=== PATIENT | female | born 1980 | race Caucasian/White ===

== ENCOUNTER 2017-05-15 02:39 | Emergency (ER) | payer MEDICAID ==
[~2017-05-15] VITALS: Ht 165.1 cm; Wt 65.5 kg
[~2017-05-15 02:39] MED LIST: PREN1TAB49 PO
[2017-05-15 02:46] VITALS: Ht 165.1 cm; Wt 65.5 kg
[2017-05-15 03:15] LABS: URINE BLOOD (Dip) POC Negative (NEGATIVE)
[2017-05-15] MEDS ORDERED: CYCLOBENZAPRINE 10 MG TAB PO ONE (03:30)
[2017-05-15] MEDS ORDERED: HYDROCODONE/APAP (10/325) TAB PO ONE (03:30)
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
--- NOTE | 2017-05-15 03:52 | RADRPT ---
PROCEDURE: CT Lumbar Spine without contrast. CLINICAL INDICATION: Back pain. TECHNIQUE: CT scan of the lumbar spine was [facility] Contiguous axial images were obtained without intravenous contrast. Coronal and sagittal refor matted images were also obtained. Images were reviewed on the PACS workstation. One or more of the following dose reduction techniques were used: - Automated exposure control. - Adjustment of the mA and/or kV according to patient size. - Use of iterative reconstruction technique. Exam CTD/vol = 11.62 mGy. Total exam DLP = 273.38 mGy-cm. COMPARISON: None. FINDINGS: Lumbar vertebral body heights and alignment are within normal limits. There is no acute fracture or subluxation. At T12-L1, the disk height is within normal limits. There is no central canal or neural foraminal s tenosis. At L1-L2, the disk height is within normal limits. There is no central canal or neural foraminal st enosis. At L2-L3, the disk height is within normal limits. There is no central canal or neural foraminal st enosis. At L3-L4, the disk height is within normal limits. There is no central canal or neural foraminal st enosis. At L4-L5, the disk height is within normal limits. There is no central canal or neural foraminal st enosis. At L5-S1, the disk height is within normal limits. There is a mild 3 mm AP diameter left posterolate ral focal disk protrusion . There is no central canal or neural foraminal stenosis. There is no paraspinal mass or collection. IMPRESSION: No acute fracture or subluxation. Mild left posterolateral focal disk protrusion at L5-S1. .Kenyon Grissom MD, MD Date Time Electronically viewed and signed by .Kenyon Grissom MD, MD on 05/15/2017 03:51 .T/
[2017-05-15] MEDS ORDERED: IBUP-1542 PO (04:03)
[2017-05-15] MEDS ORDERED: HYDR-906 PO (04:03)
[2017-05-15] MEDS ORDERED: CYCL-319 PO (04:03)
== END 2017-05-15 04:15 | disposition home or self-care (01) ==
LOC: FTE 02:39
DX: M54.42 Lumbago with sciatica, left side (principal); M51.37 Other intervertebral disc degeneration, lumbosacral region
CPT/HCPCS: 72131; 81003; Z7610

== ENCOUNTER 2017-07-31 20:37 | Emergency (ER) | payer MEDICAID ==
[~2017-07-31] VITALS: Ht 162.6 cm; Wt 66.0 kg
[~2017-07-31 20:37] MED LIST changes: +CYCL-319 PO; +HYDR-906 PO; +IBUP-1542 PO
[2017-07-31 20:42] VITALS: Ht 162.6 cm; Wt 66.0 kg
[2017-07-31] MEDS ORDERED: ACETAMINOPHEN 325 MG TAB PO ONE (21:30)
[2017-07-31] MEDS ORDERED: METOCLOPRAMIDE 10 MG TAB PO ONE (21:30)
[2017-07-31 21:41] LABS: BASOPHILS % 0.4 % (0.0-2.0); EOSINOPHILS # 0.1 10^3/ul (0.0-0.5); EOSINOPHILS % 0.9 % (0.0-7.0); HEMOGLOBIN 14.7 g/dl (12.0-16.0); LYMPHOCYTES # 1.9 10^3/ul (0.8-2.9); LYMPHOCYTES % 20.3 % (15.0-51.0); MEAN CORPUSCULAR HEMOGLOBIN 30.6 pg (29.0-33.0); MEAN CORPUSCULAR VOLUME 87.5 fl (82.0-101.0); MEAN PLATELET VOLUME 10.2 fl (7.4-10.4); MONOCYTE # 0.7 10^3/ul (0.3-0.9); MONOCYTES % 7.2 % (0.0-11.0); NEUTROPHIL # 6.7 10^3/ul (1.6-7.5); NEUTROPHILS % 70.8 % (39.0-77.0); PLATELET COUNT 260 10^3/UL (140-415); RED CELL DISTRIBUTION WIDTH 11.9 % (11.5-14.5); WHITE BLOOD COUNT 9.5 10^3/ul (4.8-10.8)
--- NOTE | 2017-07-31 21:43 | RADRPT ---
PROCEDURE: OB Ultrasound. CLINICAL INDICATION: Positive test. Vaginal bleeding. TECHNIQUE: Ultrasound of the pelvis was performed with transabdominal sonography in the axial and sagittal planes. COMPARISON: No prior study is available for comparison. FINDINGS: There is a single intrauterine gestational sac. pole and yolk sac are present. There is heart motion. heart rate is 128 beats per minute. [place]-rump length is 0.76 cm. Mean sac diameter is 1.88 cm. Menstrual age by ultrasound dates is 6 weeks 5 days. This indicates an expected date of delivery of 03/21/2018. The right ovary appears normal measuring 3.2 x 2.3 x 2.5 cm. The left ovary is not visualized. Color Doppler and pulsed Doppler sonography demonstrate normal flow to the right ovary. There is no other pelvic mass or free fluid. IMPRESSION: 1. Single live intrauterine gestation of 6 weeks 5 days menstrual age by ultrasound dates. 2. Expected date of delivery is 03/21/2018. 3. Left ovary not visualized. RPTAT: QQ .Jaden Ewing MD, Date Time Electronically viewed and signed by .Jaden Ewing MD, on 07/31/2017 21:42 .R/
[2017-07-31 21:44] LABS: ADD UMIC YES; UR ASCORBIC ACID NEGATIVE (NEGATIVE); UR BACTERIA FEW /HPF (NONE SEEN); UR BILIRUBIN (Dip) NEGATIVE (NEGATIVE); UR BLOOD (Dip) 1+ mg/dL (NEGATIVE); UR CLARITY CLEAR (CLEAR); UR COLOR YELLOW (YELLOW); UR GLUCOSE (Dip) NEGATIVE (NEGATIVE); UR KETONES (Dip) NEGATIVE (NEGATIVE); UR LEUKOCYTE ESTERASE (Dip) NEGATIVE Leu/ul (NEGATIVE); UR NITRITE (Dip) NEGATIVE (NEGATIVE); UR RBC 0 /HPF (0-5); UR SPECIFIC GRAVITY (Dip) 1.016 (1.003-1.030); UR TOTAL PROTEIN (Dip) NEGATIVE (NEGATIVE); UR UROBILINOGEN (Dip) NEGATIVE (NEGATIVE)
[2017-07-31] MEDS ORDERED: ACET500C5 PO (23:14)
[2017-07-31] MEDS ORDERED: METO10TA92 PO (23:14)
--- NOTE | 2017-07-31 23:26 | ERD ---
ER Documentation Chief Complaint Date/Time DATE: 07/31/17 TIME: 23:21 Chief Complaint 7 weeks vaginal bleeding HPI 36-year-old female patient with no significant past medical history is a presents to the ED complaining of vaginal spotting and vaginal bleeding that started intermittently since 1 week ago. Reports that she had a positive test 2 weeks ago. States that her last menstruation was on June. States that she is nauseous but denies any vomiting. She has some slight abdominal pain. Denies any dysuria, urgency, frequency, hematuria, chest pain, shortness of breath, wheezing. ROS All systems reviewed and are negative except as per history of present illness. Medications Home Meds Active Scripts Metoclopramide* (Reglan*) 10 Mg Tablet, 10 MG PO Q6 Y for NAUSEA AND/OR VOMITING , #10 TAB Prov:SHYLA RODRIGUEZ PA-C 07/31/17 Acetaminophen* (Tylophen*) 500 Mg Capsule, 1 CAP PO Q6H Y for PAIN AND OR ELEVATED TEMP, #20 CAP Prov:SHYLA RODRIGUEZ PA-C 07/31/17 Hydrocodone/Acetaminophen ([place] 5-325 Tablet) 1 Each Tablet, 1 TAB PO Q6H Y for PAIN, #20 TAB Prov:LIVIA MACKENZIE NP 05/15/17 Cyclobenzaprine Hcl* (Cyclobenzaprine Hcl*) 10 Mg Tablet, 10 MG PO TID, #15 TAB Prov:LIVIA MACKENZIE NP 05/15/17 Ibuprofen* (Motrin*) 600 Mg Tab, 600 MG PO Q6H Y for PAIN AND OR ELEVATED TEMP, #30 TAB Prov:LIVIA MACKENZIE NP 05/15/17 Reported Medications Vits W-Ca,Fe,Fa(<1MG) () 1 Tab Tablet, 1 TAB PO 04/06/12 Allergies Allergies: Coded Allergies: No Known Allergies (Verified Allergy, 04/06/12) PMhx/Soc Medical and Surgical Hx: pt denies Medical Hx, pt denies Surgical Hx Hx Alcohol Use: No Hx Substance Use: No Hx Tobacco Use: No Smoking Status: Never smoker Physical Exam Vitals Vital Signs Date Time Temp Pulse Resp B/P Pulse Ox O2 Delivery O2 Flow Rate FiO2 07/31/17 20:42 98.3 79 20 112/75 99 Physical Exam Const: [id number], well-nourished. In no acute distress. Head: Atraumatic, normocephalic Eyes: Normal Conjunctiva without injection. No purulent discharge. ENT: Normal external ear, nose. Moist oropharynx without tonsillar exudates. Non -erythematous pharynx. Uvula midline. No drooling. No trismus. Neck: No cervical midline tenderness. Full range of motion. No meningismus. No cervical lymphadenopathy. No JVD. Resp: Clear to auscultation bilaterally. No wheezing, rhonchi, rales, or crackles. No accessory muscle use. No retractions. Cardio: Regular rate and rhythm. No murmurs, rubs or gallops. Abd: Soft, nontender, non distended. Normal bowel sounds. No palpable masses. No rebound tenderness. No guarding. Negative McBurney's point. Negative psoas sign. Negative obturator sign. Skin: No petechiae or rashes Back: No midline tenderness. No CVA tenderness. Ext: No cyanosis, or edema. Neur: Awake and alert. Normal gait. Normal coordination. Psych: Normal Mood and Affect Result Diagram: 07/31/172114 Results 24 hrs Laboratory Tests Test 07/31/17 21:15 White Blood Count 9.510^3/ul Red Blood Count 4.8010^6/ul Hemoglobin 14.7g/dl Hematocrit 42.0% Mean Corpuscular Volume 87.5fl Mean Corpuscular Hemoglobin 30.6pg Mean Corpuscular Hemoglobin Concent 35.0g/dl Red Cell Distribution Width 11.9% Platelet Count 23420^3/UL Mean Platelet Volume 10.2fl Neutrophils % 70.8% Lymphocytes % 20.3% Monocytes % 7.2% Eosinophils % 0.9% Basophils % 0.4% Nucleated Red Blood Cells % 0.0/100WBC Neutrophils # 6.710^3/ul Lymphocytes # 1.910^3/ul Monocytes # 0.710^3/ul Eosinophils # 0.110^3/ul Basophils # 0.010^3/ul Nucleated Red Blood Cells # 0.010^3/ul Urine Color YELLOW Urine Clarity CLEAR Urine pH 7.0 Urine Specific [place] 1.016 Urine Ketones NEGATIVEmg/dL Urine Nitrite NEGATIVEmg/dL Urine Bilirubin NEGATIVEmg/dL Urine Urobilinogen NEGATIVEmg/dL Urine Leukocyte Esterase NEGATIVELeu/ul Urine Microscopic RBC 0/HPF Urine Microscopic WBC 1/HPF Urine Bacteria FEW/HPF Urine Hemoglobin 1+mg/dL Urine Glucose NEGATIVEmg/dL Urine Total Protein NEGATIVEmg/dl Beta HCG, Quantitative 96130.0mIU/ml Current Medications Medications (Trade) Dose Ordered Sig/Gentry Route PRN Reason Start Time Stop Time Status Last Admin Dose Admin Metoclopramide HCl (Reglan) 10 mg ONCE ONCE PO 07/31/17 21:30 07/31/17 21:31 DC 07/31/17 21:18 Acetaminophen (Tylenol Tab) 650 mg ONCE ONCE PO 07/31/17 21:30 07/31/17 21:31 DC 07/31/17 21:17 Procedures/MDM This is a 36-year-old female patient who is a presents to the ED complaining of abdominal pain, vaginal bleeding and nausea. Patient is afebrile nontoxic appearing. Patient has normal vital signs. An ultrasound, beta-hCG, CBC, type and RH, UA was ordered to evaluate patient. CBC: No evidence of severe infection or anemia Urine: No elevation in nitrites, leukocyte esterase, 1+ hematuria. Rh: A positive No indication for Rhogam at this time. beta Hc PROCEDURE: OB Ultrasound. CLINICAL INDICATION: Positive test. Vaginal bleeding. TECHNIQUE: Ultrasound of the pelvis was performed with transabdominal sonography in the axial and sagittal planes. COMPARISON: No prior study is available for comparison. FINDINGS: There is a single intrauterine gestational sac. pole and yolk sac are present. There is heart motion. heart rate is 128 beats per minute. [place]-rump length is 0.76 cm. Mean sac diameter is 1.88 cm. Menstrual age by ultrasound dates is 6 weeks 5 days. This indicates an expected date of delivery of 03/21/2018. The right ovary appears normal measuring 3.2 x 2.3 x 2.5 cm. The left ovary is not visualized. Color Doppler and pulsed Doppler sonography demonstrate normal flow to the right ovary. There is no other pelvic mass or free fluid. IMPRESSION: 1. Single live intrauterine gestation of 6 weeks 5 days menstrual age by ultrasound dates. 2. Expected date of delivery is 03/21/2018. 3. Left ovary not visualized. Patient's bleeding symptoms have stabilized while in the department. Patient has a single IUP of 6 weeks 5 days menstrual age by ultrasound dates. Low suspicion for symptomatic anemia, ectopic , sepsis, PID, appendicitis, ovarian torsion, tubo-ovarian abscess, surgical abdomen, or other emergent conditions. Patient was educated that there is a risk for threatened . Charge medications: Reglan, Tylenol Patient to follow up with [facility] in 2 days for further evaluation and treatment. Patient is to return sooner to the ED for any worsening symptoms. Patient's questions were answered. Patient understood and agreed with discharge plan. Departure Diagnosis: Primary Impression: Vaginal bleeding in patient at less than 20 weeks ges... Condition: Stable Patient Instructions: : Your First Trimester Changes, Possible Miscarriage (Threatened ) Referrals: [facility] YOU HAVE RECEIVED A MEDICAL SCREENING EXAM AND THE RESULTS INDICATE THAT YOU DO NOT HAVE A CONDITION THAT REQUIRES URGENT TREATMENT IN THE EMERGENCY DEPARTMENT. FURTHER EVALUATION AND TREATMENT OF YOUR CONDITION CAN WAIT UNTIL YOU ARE SEEN IN YOUR DOCTORS OFFICE WITHIN THE NEXT 1-2 DAYS. IT IS YOUR RESPONSIBILITY TO MAKE AN APPOINTMENT FOR FOLOW-UP CARE. IF YOU HAVE A PRIMARY DOCTOR --you should call your primary doctor and schedule an appointment IF YOU DO NOT HAVE A PRIMARY DOCTOR YOU CAN CALL OUR PHYSICIAN REFERRAL HOTLINE AT IF YOU CAN NOT AFFORD TO SEE A PHYSICIAN YOU CAN CHOSE FROM THE FOLLOWING [facility] [address] [facility]. [facility] [address] [facility] [address] [facility]. [facility] [address] [facility]. [facility] [address] [facility]. [facility]. [address] [facility]. [facility] YOU HAVE RECEIVED A MEDICAL SCREENING EXAM AND THE RESULTS INDICATE THAT YOU DO NOT HAVE A CONDITION THAT REQUIRES URGENT TREATMENT IN THE EMERGENCY DEPARTMENT. FURTHER EVALUATION AND TREATMENT OF YOUR CONDITION CAN WAIT UNTIL YOU ARE SEEN IN YOUR DOCTORS OFFICE WITHIN THE NEXT 1-2 DAYS. IT IS YOUR RESPONSIBILITY TO MAKE AN APPOINTMENT FOR FOLOW-UP CARE. IF YOU HAVE A PRIMARY DOCTOR --you should call your primary doctor and schedule and appointment IF YOU DO NOT HAVE A PRIMARY DOCTOR YOU CAN CALL OUR PHYSICIAN REFERRAL HOTLINE AT . IF YOU CAN NOT AFFORD TO SEE A PHYSICIAN YOU CAN CHOSE FROM THE FOLLOWING [facility] INSTITUTIONS: [facility] [address] [place] [address] [facility] [address] [place], [place] [address] [place] [address] [address] [place] [address] [facility] URGENT CARE/SPECIALTIES Additional Instructions: Llame al doctor MAANA y nathan segun BETITO PARA DENTRO DE 2-3 MUSE para segun referencia a un obstetra. Dgale a la secretaria que nosotros le instruimos hacer esta betito.Avise o llame si scott condicin se empeora antes de la betito. Regresa aqui si peor o no mejor. SHYLA RODRIGUEZ PA-C Jul 31, 2017 23:26
== END 2017-07-31 23:31 | disposition home or self-care (01) ==
LOC: FTE 20:37
DX: O20.9 Hemorrhage in early pregnancy, unspecified (principal); Z3A.01 Less than 8 weeks gestation of pregnancy
CPT/HCPCS: 36415; 76801; 81001; 84702; 85025; 86900; 86901; Z7502; Z7610

== ENCOUNTER 2017-09-27 23:52 | Emergency (ER) | payer MEDICAID, OTHER ==
[~2017-09-27] VITALS: Ht 157.5 cm; Wt 66.4 kg
[~2017-09-27 23:52] MED LIST changes: +ACET500C5 PO; +METO10TA92 PO
[2017-09-28 00:03] VITALS: Ht 157.5 cm; Wt 66.4 kg
[2017-09-28] MEDS ORDERED: SOD CHLORIDE 0.9% 1,000 ML IV STA (00:03)
[2017-09-28 00:52] VITALS: BP 116/77; PULSE 80; RESP 16; TEMP 98.2
[2017-09-28 01:01] LABS: BASOPHILS % 0.3 % (0.0-2.0); EOSINOPHILS # 0.1 10^3/ul (0.0-0.5); EOSINOPHILS % 1.3 % (0.0-7.0); HEMOGLOBIN 12.7 g/dl (12.0-16.0); LYMPHOCYTES % 22.8 % (15.0-51.0); MEAN CORPUSCULAR HEMOGLOBIN 30.3 pg (29.0-33.0); MEAN CORPUSCULAR HGB CONC 35.3 g/dl (32.0-37.0); MEAN CORPUSCULAR VOLUME 85.9 fl (82.0-101.0); MEAN PLATELET VOLUME 10.6 fl (7.4-10.4); MONOCYTE # 0.6 10^3/ul (0.3-0.9); MONOCYTES % 6.4 % (0.0-11.0); NEUTROPHIL # 5.8 10^3/ul (1.6-7.5); PLATELET COUNT 234 10^3/UL (140-415); RED BLOOD COUNT 4.19 10^6/ul (4.20-5.40); RED CELL DISTRIBUTION WIDTH 12.6 % (11.5-14.5); WHITE BLOOD COUNT 8.6 10^3/ul (4.8-10.8)
[2017-09-28 01:18] LABS: ADD UMIC NO; UR ASCORBIC ACID NEGATIVE (NEGATIVE); UR BILIRUBIN (Dip) NEGATIVE (NEGATIVE); UR BLOOD (Dip) NEGATIVE (NEGATIVE); UR CLARITY CLEAR (CLEAR); UR COLOR YELLOW (YELLOW); UR GLUCOSE (Dip) 1+ mg/dL (NEGATIVE); UR KETONES (Dip) NEGATIVE (NEGATIVE); UR LEUKOCYTE ESTERASE (Dip) NEGATIVE Leu/ul (NEGATIVE); UR NITRITE (Dip) NEGATIVE (NEGATIVE); UR SPECIFIC GRAVITY (Dip) 1.013 (1.003-1.030); UR TOTAL PROTEIN (Dip) NEGATIVE (NEGATIVE); UR UROBILINOGEN (Dip) NEGATIVE (NEGATIVE)
[2017-09-28 01:35] LABS: ANION GAP 13 (8-16); BLOOD UREA NITROGEN 9 mg/dl (7-20); CALCIUM 9.3 mg/dl (8.4-10.2); CARBON DIOXIDE 26 mmol/L (21-31); CHLORIDE 105 mmol/L (97-110); GLUCOSE 140 mg/dl (70-220); POTASSIUM 3.3 mmol/L (3.5-5.1); SODIUM 141 mmol/L (135-144)
[2017-09-28 01:43] LABS: TROPONIN-I < 0.012 ng/ml (0.00-0.12)
--- NOTE | 2017-09-28 03:10 | RADRPT ---
PROCEDURE: Obstetrical ultrasound, limited. CLINICAL INDICATION: Pelvic pain. TECHNIQUE: Multiple sonographic images of the pelvis were obtained using transabdominal technique . Images were obtained with lovett scale and color Doppler. The images were reviewed on a PACS works tation. COMPARISON: No prior studies are available for comparison. FINDINGS: There is a single living intrauterine gestation with the fetus in a variable presentation. he art tones of 144 beats per minute are identified. The placenta is posterior in location, grade 0. There is normal amniotic fluid volume. The cervix is closed. There is no evidence of placenta abru ption. There is a placenta previa. Measurements were made in order to determine age. The results are as follows: BPD =3.08 cm HC =11.20 cm AC =10.02 cm FL =2.05 cm. Estimated gestational age of approximately 15 weeks and 6 days. The estimated date of delivery is 03/16/2018. The EFW = 142 +/- 21 grams. Estimated weight percentage equals 91.6%. IMPRESSION: Single viable intrauterine gestation of approximately 15 weeks and 6 days, with an ultrasound MATT of 03/16/2018. Placenta previa. .Kenyon Grissom MD, MD Date Time Electronically viewed and signed by .Kenyon Grissom MD, MD on 09/28/2017 03:09 .T/
--- NOTE | 2017-09-28 04:34 | ERD ---
ER Documentation Chief Complaint Chief Complaint Code Camilo,c/o dizziness,SOB & lower back pain while in ED2,16 wks HPI This is a very pleasant patient was a code green. Patient complained of dizziness and lower back pain will need to wait with another patient. Patient denies any vaginal bleeding or cramping. Denies any chest pain or palpitations. Denies any other current complaints. ROS All systems reviewed and are negative except as per history of present illness. Allergies Allergies: Coded Allergies: No Known Allergy (Unverified , 09/28/17) PMhx/Soc History of Surgery: Yes (cholecystectomy) Anesthesia Reaction: No Hx Neurological Disorder: No Hx Respiratory Disorders: No Hx Cardiac Disorders: No Hx Psychiatric Problems: No Hx Miscellaneous Medical Probl: No Hx Alcohol Use: No Hx Substance Use: No Hx Tobacco Use: No Smoking Status: Never smoker Physical Exam Vitals Vital Signs Date Time Temp Pulse Resp B/P Pulse Ox O2 Delivery O2 Flow Rate FiO2 09/28/17 00:52 98.2 80 16 116/77 100 Room Air 09/28/17 00:03 97.6 73 18 110/75 100 Physical Exam Const: [] Head: Atraumatic Eyes: Normal Conjunctiva ENT: Normal External Ears, Nose and Mouth. Neck: Full range of motion..~ No meningismus. Resp: Clear to auscultation bilaterally Cardio: Regular rate and rhythm, no murmurs Abd: Soft, non tender, non distended. Normal bowel sounds Skin: No petechiae or rashes Back: No midline or flank tenderness Ext: No cyanosis, or edema Neur: Awake and alert Psych: Normal Mood and Affect Result Diagram: 09/28/17 0018 09/28/17 0018 Results 24 hrs Laboratory Tests Test 09/28/17 00:18 09/28/17 00:49 White Blood Count 8.610^3/ul Red Blood Count 4.1910^6/ul Hemoglobin 12.7g/dl Hematocrit 36.0% Mean Corpuscular Volume 85.9fl Mean Corpuscular Hemoglobin 30.3pg Mean Corpuscular Hemoglobin Concent 35.3g/dl Red Cell Distribution Width 12.6% Platelet Count 54973^3/UL Mean Platelet Volume 10.6fl Neutrophils % 68.0% Lymphocytes % 22.8% Monocytes % 6.4% Eosinophils % 1.3% Basophils % 0.3% Nucleated Red Blood Cells % 0.0/100WBC Neutrophils # 5.810^3/ul Lymphocytes # 2.010^3/ul Monocytes # 0.610^3/ul Eosinophils # 0.110^3/ul Basophils # 0.010^3/ul Nucleated Red Blood Cells # 0.010^3/ul Urine Color YELLOW Urine Clarity CLEAR Urine pH 6.0 Urine Specific [place] 1.013 Urine Ketones NEGATIVEmg/dL Urine Nitrite NEGATIVEmg/dL Urine Bilirubin NEGATIVEmg/dL Urine Urobilinogen NEGATIVEmg/dL Urine Leukocyte Esterase NEGATIVELeu/ul Urine Hemoglobin NEGATIVEmg/dL Urine Glucose 1+mg/dL Urine Total Protein NEGATIVEmg/dl Sodium Level 141mmol/L Potassium Level 3.3mmol/L Chloride Level 105mmol/L Carbon Dioxide Level 26mmol/L Anion Gap 13 Blood Urea Nitrogen 9mg/dl Creatinine 0.50mg/dl Glucose Level 140mg/dl Calcium Level 9.3mg/dl Troponin I < 0.012ng/ml Bedside Glucose 171mg/dL Current Medications Medications (Trade) Dose Ordered Sig/Gentry Route PRN Reason Start Time Stop Time Status Last Admin Dose Admin Sodium Chloride (NS) 1,000 ml @ 1,000 mls/hr Q1H STAT IV 09/28/17 00:03 09/28/17 01:02 DC 09/28/17 01:02 Procedures/MDM Medical decision-making: Patient with new single episode. At this point clinically stable. Found to have placenta previa. Notified. Follow-up with OB. Return for any vaginal bleeding. Departure Diagnosis: Primary Impression: Multiple complaints Condition: Stable Patient Instructions: Near Syncope, Vasovagal JENS ALANIZ Sep 28, 2017 04:34
== END 2017-09-28 05:18 | disposition home or self-care (01) ==
LOC: MERGE 23:52 → E/R 23:52
DX: O44.02 Complete placenta previa NOS or without hemorrhage, second trimester (principal); R42 Dizziness and giddiness; R06.02 Shortness of breath; R40.2142 Coma scale, eyes open, spontaneous, at arrival to emergency department; R40.2252 Coma scale, best verbal response, oriented, at arrival to emergency department; R40.2362 Coma scale, best motor response, obeys commands, at arrival to emergency department; Z3A.16 16 weeks gestation of pregnancy
CPT/HCPCS: 36415; 76805; 80048; 81003; 82962; 84484; 85025; 93005; J7030; Z7502

== ENCOUNTER 2017-12-08 11:08 | Outpatient (CLI) | END 2017-12-08 12:51 | disposition home or self-care (01) ==

== ENCOUNTER 2018-01-18 06:05 | Outpatient (CLI) | END 2018-01-18 08:28 | disposition home or self-care (01) ==

== ENCOUNTER 2018-01-18 08:48 | Emergency (ER) | END 2018-01-18 12:05 | disposition home or self-care (01) ==

== ENCOUNTER 2018-01-28 15:00 | Inpatient (IN) | END 2018-01-29 11:00 | disposition home or self-care (01) | DRG 781 ==

== ENCOUNTER 2018-02-01 12:15 | Inpatient (IN) | END 2018-02-04 17:05 | disposition home or self-care (01) | DRG 781 ==

== ENCOUNTER 2018-02-08 10:51 | Outpatient (CLI) | END 2018-02-08 14:38 | disposition home or self-care (01) ==

== ENCOUNTER 2018-02-14 12:40 | Inpatient (IN) | END 2018-02-17 16:30 | disposition home or self-care (01) | DRG 775 ==

== ENCOUNTER 2019-05-27 21:11 | Emergency (ER) | payer MEDICAID ==
[~2019-05-27] VITALS: Ht 162.6 cm; Wt 72.1 kg
[~2019-05-27 21:11] MED LIST changes: -ACET500C5 PO; -CYCL-319 PO; -HYDR-906 PO; -IBUP-1542 PO; -METO10TA92 PO
[2019-05-27 21:20] VITALS: Ht 162.6 cm; Wt 72.1 kg
--- NOTE | 2019-05-27 22:53 | ERD ---
ER Documentation Chief Complaint Chief Complaint ALOC AFTER EATING BROWNIE, SUSPECTED POSSIBLE CANNABIS INGESTION HPI 38-year-old female who presents to the emergency room for possible marijuana ingestion. Story is is that the patient's daughter had brought some brownies home from her boyfriend's home. Multiple family members ingested including 3 daughters and the patient. The patient herself describes a general feeling of malaise, lightheadedness, intoxication and body numbness. The symptoms are gradually improving. She denies any other exposures or ingestions. Symptoms are improving at this time. She denies any headache chest pain or shortness of breath. ROS All systems reviewed and are negative except as per history of present illness. Medications Home Meds Reported Medications Vits W-Ca,Fe,Fa(<1MG) () 1 Tab Tablet, 1 TAB PO 04/06/12 Allergies Allergies: Coded Allergies: No Known Allergies (Verified Allergy, Unknown, 02/14/18) PMhx/Soc History of Surgery: Yes (cholecystectomy) Anesthesia Reaction: No Hx Neurological Disorder: No Hx Respiratory Disorders: No Hx Cardiac Disorders: No Hx Psychiatric Problems: No Hx Miscellaneous Medical Probl: No Hx Alcohol Use: No Hx Substance Use: No Hx Tobacco Use: No (quit) Smoking Status: Former smoker FmHx Family History: No diabetes Physical Exam Vitals Vital Signs Date Temp Pulse Resp B/P (MAP) Pulse Ox O2 O2 Flow FiO2 Time Delivery Rate 05/27/19 99.3 94 16 126/88 96 21:20 (101) Physical Exam General: Appears subtly intoxicated but otherwise appropriate no acute distress Head: Normocephalic, atraumatic. Eyes: Pupils equally reactive, EOM intact ENT: Moist mucous membranes Neck: Supple, no lymphadenopathy Respiratory: Lungs clear bilaterally, no distress Cardiovascular: RRR, no murmurs, rubs, or gallops Abdominal: Soft, non-tender, non-distended, no peritoneal signs : Deferred MSK: No edema, no unilateral swelling, 5/5 strength Neurologic: Alert and oriented, moving all extremities, normal speech, no focal weakness, no cerebellar signs Skin: No rash Psych: Normal mood Procedures/MDM Patient presents with possible marijuana ingestion, accidental. The patient's presentation and clinical symptomatology seem consistent with THC ingestion. Patient herself appears to be hemodynamic is stable without signs or symptoms concerning for alternative process or alternative intoxication. This was an accidental issue without concern for overdose, intentionally. Patient will be observed for greater than 1 hour. If continues to be well- appearing, no indication for interventions at this time. No significant changes, moderate improvement during observation. The patient does not have an identifiable emergent medical condition that warrants inpatient hospitalization at this time. The patient is deemed safe for discharge with outpatient follow-up. We discussed follow up with the patient's primary care doctor within 24 to 48 hours as needed. We also discussed return to the emergency room for worsening symptoms or worsening condition. Outpatient referral: None required Discharge Medications: None required Departure Diagnosis: Primary Impression: Marijuana intoxication Complication of substance-induced condition: uncomplicated Qualified Codes: F12.920 - Cannabis use, unspecified with intoxication, uncomplicated Condition: Stable LENA COTTRELL MD May 27, 2019 22:53
[2019-05-27 23:53] VITALS: BP 122/85; PULSE 87; RESP 18
== END 2019-05-28 00:02 | disposition home or self-care (01) ==
LOC: E/R 21:11
DX: F12.920 Cannabis use, unspecified with intoxication, uncomplicated (principal); R40.2142 Coma scale, eyes open, spontaneous, at arrival to emergency department; R40.2252 Coma scale, best verbal response, oriented, at arrival to emergency department; R40.2362 Coma scale, best motor response, obeys commands, at arrival to emergency department; Z87.891 Personal history of nicotine dependence
CPT/HCPCS: 80307; Z7502; 99282